=== PATIENT | male | born 1980 | race Caucasian/White ===

== ENCOUNTER 2018-11-23 12:41 | Emergency (ER) | payer OTHER ==
[~2018-11-23] VITALS: Ht 182.9 cm; Wt 72.7 kg
[2018-11-23 12:44] VITALS: Ht 182.9 cm; Wt 72.7 kg
[2018-11-23] MEDS ORDERED: AUGMENTIN 875-11 TAB PO (14:39)
[2018-11-23] MEDS ORDERED: TYLENOL W/CODEI1 TAB PO (14:39)
[2018-11-23 16:30] VITALS: BP 106/75
== END 2018-11-23 14:51 | disposition home or self-care (01) ==
LOC: D.ER 12:41
DX: S71.151A Open bite, right thigh, initial encounter (principal); W54.0XXA Bitten by dog, initial encounter; F17.200 Nicotine dependence, unspecified, uncomplicated